=== PATIENT | male | born 1975 | race American Indian/Alaskan Native ===

== ENCOUNTER 2019-11-23 09:03 | Outpatient (CLI) | payer OTHER ==
--- NOTE | 2019-11-23 09:53 | XRay Report ---
LUMBAR SPINE 3 VIEWS INDICATION: BACK PAIN. COMPARISON: None. IMPRESSION: Normal bone mineralization. 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 The remaining lumbar vertebra are normal in alignment. No s ignificant degenerative disc disease or facet arthropathy. No fracture or bone lesion. The sacrum and SI joints are unremarkable. Signer Name: Jerald Yates Jr, MD Signed: 11/23/2019 9:49 AM Workstation Name: [id number]
== END 2019-11-23 09:04 | disposition home or self-care (01) ==
LOC: XRAY 09:03
PROVIDERS: ATTEND Internal Medicine
DX: M43.07 Spondylolysis, lumbosacral region (principal); M54.2 Cervicalgia; M25.562 Pain in left knee; R06.81 Apnea, not elsewhere classified; N52.9 Male erectile dysfunction, unspecified
CPT/HCPCS: 72100

== ENCOUNTER 2020-01-05 11:06 | Outpatient (CLI) | payer OTHER ==
--- NOTE | 2020-01-05 12:50 | XRay Report ---
LEFT SHOULDER 3 VIEWS INDICATION: LEFT SHOULDER PAIN. COMPARISON: None. IMPRESSION: No acute osseous or soft tissue abnormality. Mild acromioclavicular osteoarthritis is noted. Signer Name: Jerald Yates Jr, MD Signed: 01/05/2020 12:46 PM Workstation Name: [id number]
== END 2020-01-05 11:07 | disposition home or self-care (01) ==
LOC: XRAY 11:06
PROVIDERS: ATTEND Internal Medicine
DX: M19.012 Primary osteoarthritis, left shoulder (principal); F32.9 Major depressive disorder, single episode, unspecified; G47.30 Sleep apnea, unspecified; M25.562 Pain in left knee; M54.5 Low back pain; N52.9 Male erectile dysfunction, unspecified; F43.10 Post-traumatic stress disorder, unspecified; X58.XXXA Exposure to other specified factors, initial encounter; Y93.89 Activity, other specified; Y92.89 Other specified places as the place of occurrence of the external cause; Y99.8 Other external cause status